=== PATIENT | female | born 2000 | race Two or more races ===

== ENCOUNTER 2025-06-08 08:05 | Emergency (ER) | payer BC, SELFPAY ==
[2025-06-08 08:34] VITALS: BP 163/101; PULSE 86; RESP 18; TEMP 36.9; O2SAT 99; BMI 39.6
--- NOTE | 2025-06-08 08:55 | PD.EDRME ---
Rapid Medical Screening Exam [facility] Arrival date/time: 06/08/25 08:05 This is a 25-year-old female that comes into the emergency room with complaints of abdominal pain and back pain that started this morning. Patient also complains of vomiting. Patient denies fever, diarrhea. Patient denies any past medical history I have greeted and performed a focused initial assessment of this patient. Initial appropriate labs ordered at this time. A comprehensive ED assessment and evaluation of the patient and analysis of all test and completion of medical decision making process will be conducted by additional ED provider. Chief Complaint: Back Pain/Injury Time Seen by Provider: 06/08/25 08:16 Vital signs: Vital Signs Temperature 98.5 F 06/08/25 08:34 Pulse Rate 86 06/08/25 08:34 Respiratory Rate 18 06/08/25 08:34 Blood Pressure 163/101 H 06/08/25 08:34 Pulse Oximetry (%) 99 06/08/25 08:34 Oxygen Delivery Method Room Air 06/08/25 08:34 Exam: Alert and oriented, breathing even and unlabored. Skin warm and dry Clinical Impression: Abdominal pain
[2025-06-08 09:33] LABS: Basophils # (Auto) 0.1 Thou/mm3 (0.0-0.2); Basophils % (Auto) 1 % (0-2.5); Eosinophils # (Auto) 0.1 Thou/mm3 (0.0-0.5); Eosinophils % (Auto) 2 % (0-10); Hematocrit 41.2 % (36.0-46.0); Hemoglobin 13.6 g/dL (12.0-16.0); Immature Granulocytes Auto 0.04 Thou/mm3 (0.00-0.00); Lymphocytes # (Auto) 2.4 Thou/mm3 (1.0-4.8); Lymphocytes % (Auto) 28 % (10-50); Mean Corpuscular HGB Conc 33.0 g/dl (31.0-37.0); Mean Corpuscular Hemoglobin 27.6 pg (25.0-35.0); Mean Corpuscular Volume 84 fL (80-100); Monocytes # (Auto) 0.4 Thou/mm3 (0.0-0.8); Monocytes % (Auto) 5 % (0-12); Neutrophils # (Auto) 5.8 Thou/mm3 (1.8-7.7); Neutrophils % (Auto) 65 % (37-80); Nucleated Red Blood Cell # 0.00 Thou/mm3 (0.00-0.00); Nucleated Red Blood Cell % 0 /100 WBC (0); Platelet Count 275 Thou/mm3 (140-440); RDW Standard Deviation 42.6 fL (36.4-46.3); Red Blood Count 4.93 Miln/mm3 (4.00-5.20); White Blood Count 8.9 Thou/mm3 (3.6-11.0)
[2025-06-08 09:34] VITALS: BP 143/96; PULSE 93; RESP 16; TEMP 37.2; O2SAT 99
[2025-06-08 09:41] LABS: Alanine Aminotransferase 129 U/L (10-49); Albumin, Serum 5.2 gm/dL (3.5-5.0); Albumin/Globulin Ratio 1.9 (1.2-2.2); Alkaline Phosphatase 94 U/L (46-116); Anion Gap 11 (7-16); Aspartate Amino Transferase 47 U/L (0-34); BUN/Creatinine Ratio 14 Ratio (12-20); Bilirubin,Total 0.3 mg/dL (0.3-1.2); Blood Urea Nitrogen 11 mg/dL (9-23); Calcium 9.7 mg/dL (8.3-10.6); Calcium (Corrected) 9.7 mg/dL (8.5-10.1); Carbon Dioxide 25.3 mMol/L (20.0-31.0); Chloride 105 mMol/L (98-107); Creatinine (Component) 0.8 mg/dL (0.6-1.3); Estimated Creatinine Clearance 112.3 mL/min (>60); Globulin 2.7 gm/dL (2.3-3.5); Glucose 165 mg/dL (74-106); Lipase 37 U/L (12-53); Osmolality,Calculated 284 (275-295); Potassium 4.0 mMol/L (3.4-5.1); Sodium 141 mMol/L (136-145); Total Protein 7.9 gm/dL (5.7-8.2); eGFR > 60 See Note
--- NOTE | 2025-06-08 09:50 | PD.EDABDPN ---
ED Abdominal Pain RME/HPI General Chief Complaint: Back Pain/Injury Stated complaint: LOWER BACK/RLQ ABD PAIN, VOMITING Time seen by provider: 06/08/25 08:16 Arrival date/time: 06/08/25 08:05 Source: patient Mode of arrival: ambulatory Limitations: no limitations RME / HPI RME / HPI narrative: 06/08/25 08:05 This is a 25-year-old female that comes into the emergency room with complaints of abdominal pain and back pain that started this morning. Patient also complains of vomiting. Patient denies fever, diarrhea. Patient denies any past medical history I have greeted and performed a focused initial assessment of this patient. Initial appropriate labs ordered at this time. A comprehensive ED assessment and evaluation of the patient and analysis of all test and completion of medical decision making process will be conducted by additional ED provider. DR. STONE CARVALHO ED EVALUATION: 25-year-old female with past medical history significant for kidney stones and a cholecystectomy presents to the Emergency Department with complaint of right flank and right back pain that began earlier today. She reports the pain feels similar to prior episodes of kidney stones. She endorses fevers, chills, nausea, and vomiting associated with the pain. Last bowel movement was yesterday, normal. She denies constipation. She is accompanied by her mother. Related Data Previous Rx's ?Medication ?Instructions ?Recorded cephalexin 500 mg capsule 500 mg PO QID #40 caps 06/08/25 tamsulosin 0.4 mg capsule 0.4 mg PO QDAY #14 caps 06/08/25 Allergies Allergy/AdvReac Type Severity Reaction Status Date / Time No Known Allergies Allergy Verified 06/08/25 08:07 Review of Systems Review of Systems Systems Reviewed: All systems reviewed, normal except as documented Past Medical History Social History SMOKING STATUS: Former smoker SUBSTANCE USE: does not use ALCOHOL: Never ED Exam General Limitations: Present no limitations General appearance: Present alert and in no apparent distress Head Head exam: Present atraumatic, normocephalic and normal inspection Eye Eye exam: Present normal appearance, PERRL and EOMI ENT ENT exam: Present normal exam, normal oropharynx and mucous membranes moist Neck Neck exam: Present normal inspection, full ROM and trachea midline Chest Chest inspection: Present normal inspection and symmetric chest wall rise Respiratory Respiratory exam: Present normal lung sounds bilaterally Cardiovascular Cardiovascular exam: Present regular rate, normal rhythm and normal heart sounds Abdominal Exam Abdominal exam: Present soft; Absent distention, tenderness, guarding or rebound Extremities Exam Extremities exam: Present normal inspection and full ROM Back Exam Back exam: Present tenderness (right flank tenderness) Neurological Exam Neurological exam: Present alert, oriented X3 and CN II-XII intact Psychiatric Psychiatric exam: Present normal affect and normal mood Skin Skin exam: Present warm, dry, intact and normal color Course Quality Measures none Orders Category Date Time Status CT Screening NOW Care 06/08/25 09:50 Active Referral - Senior Operations Manager Stat Cons 06/08/25 13:[address] abdomen pelvis w con Stat Exams 06/08/25 09:50 Completed CBC Stat Lab 06/08/25 09:15 Completed Comprehensive Metabolic Panel Stat Lab 06/08/25 09:15 Completed Drug Screen,Urine Stat Lab 06/08/25 09:11 Completed HCG Qualitative,Urine Stat Lab 06/08/25 09:11 Completed HCG,Qualitative Serum Stat Lab 06/08/25 09:15 Completed Lipase Stat Lab 06/08/25 09:15 Completed Urinalysis, C/S if Indicated Stat Lab 06/08/25 09:11 Completed Urine Culture Stat Lab 06/08/25 09:11 Received Acetaminophen Tab [Tylenol Tab] Med 06/08/25 09:51 Discontinued 650 mg PO X1 ONE cefTRIAXone/D5w 1gm IV premix [Rocephin/D5w 1gm IV Med 06/08/25 11:29 Discontinued premix] 1 gm in 50 ml IV STAT Vital Signs Vital signs: Vital Signs Temperature 98.5 F 06/08/25 08:34 Pulse Rate 86 06/08/25 08:34 Respiratory Rate 18 06/08/25 08:34 Blood Pressure 163/101 H 06/08/25 08:34 Pulse Oximetry (%) 99 06/08/25 08:34 Oxygen Delivery Method Room Air 06/08/25 08:34 Abdominal Pain MDM MDM Narrative MDM Narrative:: I, Bailey Judd am scribing for and in the presence of Dr. Todd. 25-year-old female with right flank and back pain similar to prior kidney stones, with associated nausea, and vomiting. Exam shows right flank tenderness. Concern for urinary tract infection, renal colic, urolithiasis, pyelonephritis among others. Ordered labs CT abdomen pelvis offered medication for symptom relief. Patient non. Lipase not elevated. Urinalysis dark brown turbid 3+ blood positive leuk esterase 2000 RBCs, 172 WBCs. No evidence of renal dysfunction drug screen negative. CT abdomen pelvis with mildly obstructive 4 mm proximal right ureterolith, fatty liver and hepatomegaly. Patient also with diverticulosis. Provided patient with antibiotics, consulted urology for transfer given patient with concern for infected kidney stone, 4 mm obstructive partially. 1415: Urology from [facility] [place] called. They will review the case and call back. [facility] as well as at [facility] both declined the patient, states that the patient can follow-up as an outpatient. Updated patient she is hemodynamically stable not distressed will discharge home with course of antibiotics, Flomax recommendation that she follow-up within patient urologist as well as her primary care doctor. Close return precautions provided. Patient data External records reviewed:: [facility] previous records Clinical information provided by:: patient and parent Social determinants that could affect healthcare access:: none Patient has the following chronic illnesses:: kidney stones and a cholecystectomy How is presenting disease/condition affected by chronic disease/condition?: exacerbated by Evaluation data The following diagnostics were reviewed and interpreted by me:: lab results and radiology exam(s) Lab and/or radiology exams considered but not ordered:: none Interpretation Summary: See MDM narrative above. RADIOLOGY Procedure(s): CT abdomen pelvis w con Accession Number(s): [id number] cc: Akbar Barney MD; Elda Todd MD; Jermaine Connelly MD~ EXAMINATION: CT abdomen pelvis w con ORDERING PROVIDER: Elda Todd MD HISTORY: urolithiasis TECHNIQUE: After the uneventful administration of 60 cc Isovue-370 contrast and no oral contrast, Volumetric, helical CT scanner was used in the imaging acquisition of the abdomen and pelvis with 2D and 3D reformats. RADIATION DOSE: DLP 828 mGy-cm COMPARISON: None. FINDINGS: LIVER: Diffuse decreased density. Midclavicular craniocaudal length 17.0 cm. BILIARY: Status post cholecystectomy. PANCREAS: Normal. SPLEEN: Normal. ADRENAL GLANDS: Normal. KIDNEYS: Mild right-sided pelvic caliectasis. No significant fat stranding. Mildly delayed right-sided. Subcentimeter hypodensity too small to characterize the left kidney. URETERS: 4 mm proximal right ureterolith. Trace proximal right surrounding inflammatory changes. BLADDER: Normal. COLON: Several scattered colonic diverticula without surrounding inflammatory changes. APPENDIX: Normal. SMALL BOWEL: Normal. STOMACH: Not abnormally distended. VASCULATURE: Normal. PELVIS: Normal. LYMPH NODES: Scattered prominent mesenteric and retroperitoneal lymph nodes, not abnormally enlarged by imaging criteria. LUNG BASES: Trace graying of the lateral segment right middle lobe and left lower lobe without obvious airspace opacities. This may be due to atelectasis. BONES: Normal. ABDOMINAL WALL: Normal. IMPRESSION: 1. Mildly obstructive 4 mm proximal right ureterolith. 2. Hepatic steatosis and hepatomegaly. 3. Scattered colonic diverticulosis without findings for diverticulitis. Dictated By: Akbar Barney MD Medications / Prescriptions Medications or Prescriptions considered but not ordered:: none Medication administrations:: Medication Administration History Discontinued Medications Acetaminophen (Acetaminophen 325 Mg Tablet) 650 mg PO X1 ONE Stop: 06/08/25 09:52 Last Admin: 06/08/25 10:31 Dose: 650 mg Documented By: ED Ceftriaxone Sodium/Dextrose (Rocephin/D5w 1gm Iv Premix) 1 gm in 50 mls @ 100 mls/hr IV STAT STA Stop: 06/08/25 11:58 Last Infusion: 06/08/25 13:33 Dose: Infused Documented By: Admin: 06/08/25 12:27 Dose: 100 mls/hr Documented By: ED see above Consultations Consultation(s) initiated? (list below): Yes Consultation #1 (Physician, Specialty, Details): See MDM Diagnosis Differential diagnosis abdominal pain: other (nephrolithiasis, pyelonephritis, and UTI) Most likely diagnosis given after review of the tests above:: Urolithiasis, urinary tract infection, renal colic Admission Indicated Admission indicated?: not indicated Admission Request Was there a request for admission?: No Disposition Plan Disposition Plan: Discharge Discharge Attestation Discharge Attestation: The patient and all family members were given an opportunity to ask questions and understood the discharge instructions. Discharge instructions specifically effects, indications for sooner follow up or return to the emergency department, and the expected course of current diagnosis. Patient condition: Stable Discharge Plan Plan Patient Disposition: HOME (Self Care) Prescriptions/Referrals Prescriptions/Med Rec: New tamsulosin 0.4 mg capsule 0.4 mg PO QDAY Qty: 14 0RF cephalexin 500 mg capsule 500 mg PO QID Qty: 40 0RF Referrals: Jermaine Connelly MD [Primary Care Provider, Family Practice] - In 1 week Problem List Clinical Impression: Urolithiasis, Urinary tract infection Patient/Caregiver Discharge Instructions Education Materials: ED Hematuria, ED Kidney Stone w/ Colic Additional Instructions: Today waiting for they have a 4 mm stone in the left ureter as well as a urinary tract infection. It is important that you take antibiotics as prescribed. I also gave you a medication that will help you pass the stone. It is important that you hydrate well. Please establish care with a urologist this week. Please follow-up with your primary care doctor within the next 1 to 2 days. Please return to the emergency room immediately if you have worsening symptoms or any other symptom of concern. Print Language: [place] Stand Alone Forms: Olga Award Info., Patient Portal Info Letter
[2025-06-08 09:54] LABS: Collection Type, Urine Voided
[2025-06-08 10:07] LABS: HCG Qualitative,Urine Negative
[2025-06-08 10:16] LABS: Bilirubin,Urine Negative (Negative); Blood,Urine 3+ (Negative); Glucose, Urine Negative (Negative); Ketones,Urine Negative (Negative); Leukocyte Esterase,Urine Positive (Negative); Nitrite,Urine Negative (Negative); PH,Urine 6.0 (5.0-7.0); Protein,Urine 2+ (Neg - Trace); RBC,Urine 2446 /hpf (0-3); Specific Gravity,Urine 1.028 (1.001-1.035); Squamous Epithelial Cell,Urine 4 /hpf (0-5); Transitional Epi Cells,Urine 2 /hpf (0-5); Urobilinogen,Urine Negative mg/dL (0.0-1.0); WBC,Urine 172 /hpf (0-5)
[2025-06-08 10:17] LABS: Clarity,Urine Turbid (Clear/Hazy); Color,Urine Drk-Brown (Lt Yel-Yel); Culture Indicated,Urine Yes
--- NOTE | 2025-06-08 10:25 | PC.NURSE ---
Pt. here from home to room 10, pt.'s Mother is bedside, pt. states she has pain in her lower back and her abdomen, pt. states she vomited X 2 this am, pt. denies pain with urination. Pt. laying in bed watching a football game, on her I pad.
[2025-06-08] MEDS: ACETAMINOPHEN 325 MG TABLET 650 MG PO (10:31)
[2025-06-08 10:55] LABS: Amphetamine/Methamp Scrn,U Negative (Negative); Barbiturate Screen,Urine Negative (Negative); Benzodiazepines Screen,Urine Negative (Negative); Benzoylecgonine Screen, Ur Negative (Negative); Fentanyl Screen,Urine Negative (Negative); Opiate Screen,Urine Negative (Negative); THC Screen,Urine Negative (Negative)
[2025-06-08 11:00] LABS: HCG,Qualitative Serum Negative
[2025-06-08] MEDS: cefTRIAXone/D5w 1gm IV premix 1 GM/50 ML BAG IV (12:27)
[2025-06-08 12:35] VITALS: BP 116/69; PULSE 100; RESP 16; TEMP 36.4; O2SAT 95
--- NOTE | 2025-06-08 13:15 | PC.CC ---
Addendum entered by Jovita Anderson RN 06/08/25 13:53: 1350: called , spoke to Chemo, transfer initiated. 1347: received vm from Amanda, she stated [facility] is at capacity for beds but will be reassesed at 1600 Addendum entered by Jovita Anderson RN 06/08/25 13:45: 1331: received call from Amanda SKELTON from [facility], clinicals provided. She stated she will review and do a bed search and call back. 1327: called [facility], spoke to Everardo. transfer initiated. He will have nurse call back for clinical update Original Note: 1310: received call from Dr. Todd for transfer request for Urology for an infected kidney stone. Clinicals sent to [facility] and [facility]
[2025-06-08 13:57] VITALS: BP 114/74; PULSE 98; RESP 18; TEMP 36.8; O2SAT 100
[2025-06-08 15:54] VITALS: BP 122/82; PULSE 98; RESP 16; TEMP 36.7; O2SAT 97
== END 2025-06-08 16:07 | disposition home or self-care (01) ==
PROVIDERS: Nurse Practitioner Family; Emergency Provider Emergency Medicine; PCP Family Medicine
DX: N20.2 Calculus of kidney with calculus of ureter (principal); N39.0 Urinary tract infection, site not specified; K57.30 Diverticulosis of large intestine without perforation or abscess without bleeding
CPT/HCPCS: 36415; 74177; 80053; 80307; 81001; 81025; 83690; 84703; 85025; 87086; 96365; 99284; A4649; J0696; Q9967; A9270